=== PATIENT | male | born 1955 | race Caucasian/White ===

== ENCOUNTER 2017-06-11 03:54 | Observation (INO) | payer OTHER ==
[~2017-06-11] VITALS: Ht 167.6 cm; Wt 140.4 kg
[~2017-06-11 03:54] MED LIST: AMLODIPINE BESY10 MG; BUPROBAN150 MG PO; BUPROPION HCL150 M2; CALCITRIOL0.25 MCG PO; CLINORIL200 MG PO; ERGOCALCIF50000 UNIT PO; GABAPENTIN600 MG; NEURONTIN600 MG PO; NORVASC10 MG PO; OMEPRAZOLE40 M1; OMEPRAZOLE40 M1 PO; PREDNISONE20 MG PO; PRILOSEC40 MG PO; SULINDAC200 MG; TRAMADOL HCL50 MG; ULTRAM50 MG PO; WELLBUTRIN SR150 MG PO; [UNRECOGNIZED DRUG - REMARK]
[2017-06-11 04:51] LABS: ALBUMIN 3.8 g/dL (3.2-4.8); CHLORIDE 104 mEq/L (99-109); POTASSIUM 5.6 mEq/L (3.7-5.4)
[2017-06-11 04:52] LABS: SODIUM 136 mEq/L (136-147)
[2017-06-11 04:54] LABS: GLUCOSE 174 mg/dL (70-99); TOTAL PROTEIN 7.1 g/dL (6.4-8.3)
[2017-06-11 04:56] LABS: TOTAL BILIRUBIN 1.1 mg/dL (0.0-1.0)
[2017-06-11 04:57] LABS: ALKALINE PHOSPHATASE 92 IU/L (3-129); GFR ESTIMATE (CALCULATED) 36 mL/min/ (58.99-99999)
[2017-06-11 04:59] LABS: AST (GOT) 121 IU/L (2-34); UREA NITROGEN (BUN) 18 mg/dL (9-23)
[2017-06-11 05:00] LABS: ALT (GPT) 37 IU/L (3-49)
[2017-06-11 05:03] LABS: HEMATOCRIT 43.6 % (38.0-50.0); HEMOGLOBIN 14.4 G/DL (12.5-16.6); MCH 29.9 PG (29.0-34.0); MCV 90.5 FL (86-99); PLATELET COUNT 323 K/uL (156-360); RBC DIS.WIDTH-SD 48.9 % (39-53); RED BLOOD COUNT 4.82 M/uL (4.00-5.50)
[2017-06-11 05:04] LABS: TROP-I INTERPRETATION NEGATIVE; TROPONIN-I < 0.01 ng/mL (0.0-0.30)
[2017-06-11 10:46] VITALS: BP 162/61
[2017-06-11 10:49] LABS: APPEARANCE CLEAR ((CLEAR)); BILIRUBIN NEGATIVE; BLOOD NEGATIVE; COLOR YELLOW ((YELLOW)); GLUCOSE (STRIP) NEGATIVE; KETONES NEGATIVE; LEUKOCYTES NEGATIVE; NITRITE NEGATIVE; PROTEIN (STRIP) 30; SPECIFIC GRAVITY 1.019 (1.000-1.030); UCUL ADDED? NO
[2017-06-11 11:29] LABS: TROP-I INTERPRETATION NEGATIVE; TROPONIN-I < 0.01 ng/mL (0.0-0.30)
[2017-06-11] MEDS ORDERED: VALSARTAN80 MG PO (12:14)
[2017-06-11] MEDS ORDERED: ALLOPURINOL100 MG PO (12:14)
[2017-06-11] MEDS ORDERED: ALLOPURINOL300 MG PO (12:15)
[2017-06-11] MEDS ORDERED: HYDROCODON-ACE1 EAC7 PO (12:15)
[2017-06-11 14:26] VITALS: BP 114/66
[2017-06-11 15:44] LABS: C DIFF TOXIN NEGATIVE (NEGATIVE)
[2017-06-11 16:51] VITALS: BP 118/70
[2017-06-11 17:43] LABS: TROP-I INTERPRETATION NEGATIVE; TROPONIN-I < 0.01 ng/mL (0.0-0.30)
[2017-06-11 19:39] VITALS: BP 115/71
[2017-06-12 00:30] VITALS: BP 132/69
[2017-06-12 03:47] VITALS: BP 148/65
[2017-06-12 05:36] LABS: HEMATOCRIT 40.7 % (38.0-50.0); HEMOGLOBIN 12.8 G/DL (12.5-16.6); MCH 28.6 PG (29.0-34.0); MCHC 31.4 G/DL (30.0-36.0); MCV 90.8 FL (86-99); PLATELET COUNT 264 K/uL (156-360); RBC DIS.WIDTH-CV 15.4 % (11.8-14.6); RBC DIS.WIDTH-SD 50.4 % (39-53); RED BLOOD COUNT 4.48 M/uL (4.00-5.50); WHITE BLOOD COUNT 6.9 K/uL (4.1-10.2)
[2017-06-12 06:11] LABS: CHLORIDE 106 MEQ/L (99-109); CREATININE 1.9 MG/DL (0.6-1.3); GFR ESTIMATE (CALCULATED) 38 mL/min/ (58.99-99999); SODIUM 136 MEQ/L (136-147); UREA NITROGEN (BUN) 20 mg/dL (9-23)
[2017-06-12 06:33] LABS: GLUCOSE 112 mg/dL (70-99); POTASSIUM 4.4 MEQ/L (3.7-5.4)
[2017-06-12 07:14] VITALS: BP 123/66
[2017-06-12 11:13] VITALS: BP 169/83
[2017-06-12 15:36] VITALS: BP 124/66
[2017-06-12 19:41] VITALS: BP 123/77
[2017-06-13 00:30] VITALS: BP 136/73
[2017-06-13 04:01] VITALS: BP 133/70
[2017-06-13 07:23] VITALS: BP 122/70
[2017-06-13 11:07] VITALS: BP 131/75
== END 2017-06-13 12:26 | disposition home or self-care (01) ==
LOC: EME → EDBD 03:54 → EME 03:54 → EDOF 07:43 → 5WEST 07:43 → ENRESERV 07:44 → 5WEST 10:40
PROVIDERS: Emergency Medicine Emergency Medical Services; Internal Medicine
DX: R07.9 Chest pain, unspecified (principal); R10.9 Unspecified abdominal pain; R11.2 Nausea with vomiting, unspecified; R50.9 Fever, unspecified; I12.9 Hypertensive chronic kidney disease with stage 1 through stage 4 chronic kidney disease, or unspecified chronic kidney disease; N18.4 Chronic kidney disease, stage 4 (severe); R06.00 Dyspnea, unspecified; E66.01 Morbid (severe) obesity due to excess calories; Z68.42 Body mass index [BMI] 45.0-49.9, adult; R19.7 Diarrhea, unspecified; M19.90 Unspecified osteoarthritis, unspecified site; I44.7 Left bundle-branch block, unspecified; K76.0 Fatty (change of) liver, not elsewhere classified; K80.20 Calculus of gallbladder without cholecystitis without obstruction; I51.7 Cardiomegaly; Z88.1 Allergy status to other antibiotic agents
CPT/HCPCS: 71045; 74176; 76705; 78582; 80048; 80053; 81003; 83605; 83690; 83880; 84484; 85027; 85379; 87040; 87493; 87506; 93005; 93306; 99281; 99285; A9540; A9567; G0378; G8978 GP CH; G8979 GP CH; G8980 GP CH; G8987 GO CH; G8988 GO CH; G8989 GO CH; J1644; J2270; J2405; J7030; S0028

== ENCOUNTER 2017-09-15 20:14 | Emergency (ER) | payer OTHER ==
[~2017-09-15] VITALS: Ht 167.6 cm; Wt 136.5 kg
[~2017-09-15 20:14] MED LIST changes: +ALLOPURINOL100 MG PO; +ALLOPURINOL300 MG PO; +HYDROCODON-ACE1 EAC7 PO; +VALSARTAN80 MG PO
[2017-09-15 20:51] LABS: HEMATOCRIT 43.7 % (38.0-50.0); HEMOGLOBIN 14.3 G/DL (12.5-16.6); MCH 29.1 PG (29.0-34.0); MCHC 32.7 G/DL (30.0-36.0); PLATELET COUNT 401 K/uL (156-360); RBC DIS.WIDTH-CV 14.6 % (11.8-14.6); RBC DIS.WIDTH-SD 47.4 % (39-53); RED BLOOD COUNT 4.91 M/uL (4.00-5.50); WHITE BLOOD COUNT 11.8 K/uL (4.1-10.2)
[2017-09-15 21:00] LABS: CHLORIDE 104 mEq/L (99-109); SODIUM 138 mEq/L (136-147)
[2017-09-15 21:02] LABS: GLUCOSE 127 mg/dL (70-99)
[2017-09-15 21:06] LABS: CREATININE 2.1 mg/dL (0.6-1.3); GFR ESTIMATE (CALCULATED) 34 mL/min/ (58.99-99999)
[2017-09-15 21:07] LABS: UREA NITROGEN (BUN) 15 mg/dL (9-23)
[2017-09-15 21:29] LABS: APPEARANCE CLEAR ((CLEAR)); BILIRUBIN NEGATIVE; BLOOD LARGE; COLOR YELLOW ((YELLOW)); GLUCOSE (STRIP) NEGATIVE; KETONES NEGATIVE; LEUKOCYTES NEGATIVE; NITRITE NEGATIVE; PROTEIN (STRIP) NEGATIVE; SPECIFIC GRAVITY 1.016 (1.000-1.030); UROBILINOGEN 0.2 MG/DL (0.2-1.0)
[2017-09-15 21:37] LABS: BACTERIA NONE SEEN /HPF; EPITHELIAL CELLS RARE /HPF; MUCUS TRACE /LPF; RED BLOOD CELLS 30-40 /HPF (0-5); UCUL ADDED? NO; WHITE BLOOD CELLS 0-5 /HPF (0-5)
[2017-09-15] MEDS ORDERED: FLOMAX0.4 MG PO (23:02)
[2017-09-15] MEDS ORDERED: ZOFRAN ODT4 MG PO (23:02)
[2017-09-15] MEDS ORDERED: PERCOCET 5/31 TABLET PO (23:02)
[2017-09-15 23:09] VITALS: BP 151/84
== END 2017-09-15 23:11 | disposition home or self-care (01) ==
LOC: EME 20:14 → EXP 20:14
DX: N20.2 Calculus of kidney with calculus of ureter (principal); I12.9 Hypertensive chronic kidney disease with stage 1 through stage 4 chronic kidney disease, or unspecified chronic kidney disease; N18.3 Chronic kidney disease, stage 3 (moderate); Z87.442 Personal history of urinary calculi; R11.0 Nausea
CPT/HCPCS: 74176; 80048; 81003; 85027; 99281; 99284; J3010